=== PATIENT | male | born 1950 | race Two or more races ===

== ENCOUNTER 2020-02-21 12:45 | Inpatient (IN) | payer OTHER, SELFPAY ==
[~2020-02-21] VITALS: Ht 166.4 cm; Wt 92.0 kg
[2020-02-21] MEDS ORDERED: TERAZOSIN HCL1 MG PO (13:21)
[2020-02-21] MEDS ORDERED: CORTEF5 MG PO (13:21)
[2020-02-21] MEDS ORDERED: CAPSAICIN HOT1 EACH PO (13:22)
[2020-02-21] MEDS ORDERED: PANTOPRAZOLE SO20 M1 PO (13:22)
[2020-02-21 13:23] LABS: BASOPHIL % 0.5 % (0-2); RED CELL DISTRIBUTION WIDTH 13.1 % (11.5-14.5)
[2020-02-21] MEDS ORDERED: MONTELUKAST SOD (13:23)
[2020-02-21] MEDS ORDERED: TRIAMCINOLONE M1 POW (13:23)
[2020-02-21] MEDS ORDERED: MOMETASONE FURO60 ML TOP (13:23)
[2020-02-21] MEDS ORDERED: COZAAR25 M1 PO (13:23)
[2020-02-21] MEDS ORDERED: ATORVASTATIN CA10 M1 PO (13:23)
[2020-02-21] MEDS ORDERED: LEVALBUTER1.25 MG/01 IH (13:24)
[2020-02-21] MEDS ORDERED: AZOR 10-20 MG1 EACH PO (13:24)
[2020-02-21 13:29] LABS: CALCIUM 8.1 mg/dL (8.5-10.1); CHLORIDE SERUM 102 mmol/L (98-107); CREATININE SERUM 1.2 mg/dL (0.7-1.3); GFR1 > 60 mL/min; GLUCOSE SERUM 94 mg/dL (74-106); POTASSIUM SERUM 3.9 mmol/L (3.5-5.1); SODIUM SERUM 137 mmol/L (136-145)
[2020-02-21 13:30] LABS: PLATELET COUNT 122 x10^3mcL (130-400)
[2020-02-21 13:33] LABS: ALKALINE PHOSPHATASE 38 U/L (46-116); ALT/SGPT 36 U/L (16-63); AST/SGOT 42 U/L (15-37); BILIRUBIN TOTAL 0.6 mg/dL (0.20-1.00); LACTIC DEHYDROGENASE (LDH) 385 U/L (100-190); TOTAL PROTEIN, SERUM 6.9 g/dL (6.4-8.2)
[2020-02-21 13:34] LABS: ALBUMIN 3.1 g/dL (3.4-5.0)
[2020-02-21 13:36] LABS: C REACTIVE PROTEIN 13.5 mg/dL (<=0.9)
[2020-02-21 14:55] VITALS: BP 126/80
[2020-02-21 16:18] LABS: UA SPECIFIC GRAVITY 1.025 (1.005-1.035); microscopic required? YES; urine erythrocyte 3+ (NEGATIVE)
[2020-02-21 16:36] VITALS: BP 144/90
[2020-02-21 16:43] VITALS: Ht 166.4 cm; Wt 92.0 kg
[2020-02-21 20:57] VITALS: BP 156/86
[2020-02-22] VITALS (11 sets, daily range): BP systolic 77–130; BP diastolic 46–88
[2020-02-22 07:09] LABS: CALCIUM 8.8 mg/dL (8.5-10.1); CREATININE SERUM 1.3 mg/dL (0.7-1.3); POTASSIUM SERUM 3.8 mmol/L (3.5-5.1)
[2020-02-22 07:15] LABS: BASOPHIL % 0.1 % (0-2); PLATELET COUNT 143 x10^3mcL (130-400); RED CELL DISTRIBUTION WIDTH 13.8 % (11.5-14.5)
[2020-02-22 15:33] LABS: RED CELL DISTRIBUTION WIDTH 14.6 % (11.5-14.5)
[2020-02-22 17:37] LABS: BAND NEUTROPHIL 2 % (0-10); MONOCYTE 6 % (0-7); SEGMENTED NEUTROPHILS 83 % (37-75)
[2020-02-22 17:39] LABS: rbc morphology (normal/abnorm) NORMAL (NORMAL)
[2020-02-22 17:42] LABS: PLATELET MORPHOLOGY PLATELETS NORMAL
[2020-02-22 17:46] LABS: PLATELET COUNT 148 x10^3mcL (130-400)
[2020-02-22 18:06] LABS: CARBON DIOXIDE 19.9 mmol/L (21-32)
[2020-02-22 18:12] LABS: CREATININE SERUM 2.1 mg/dL (0.7-1.3)
[2020-02-22 18:14] LABS: CALCIUM 8.1 mg/dL (8.5-10.1)
[2020-02-23] VITALS (15 sets, daily range): BP systolic 81–122; BP diastolic 44–4410
[2020-02-23 05:36] LABS: PLATELET COUNT 145 x10^3mcL (130-400)
[2020-02-23 05:41] LABS: BASOPHIL % 0 % (0-2)
[2020-02-23 05:42] LABS: CALCIUM 7.8 mg/dL (8.5-10.1); CARBON DIOXIDE 22.1 mmol/L (21-32); CREATININE SERUM 3.5 mg/dL (0.7-1.3); POTASSIUM SERUM 3.2 mmol/L (3.5-5.1)
[2020-02-24] VITALS (20 sets, daily range): BP systolic 73–132; BP diastolic 43–69
[2020-02-24 05:19] LABS: BILIRUBIN TOTAL 0.5 mg/dL (0.20-1.00); CALCIUM 6.2 mg/dL (8.5-10.1); CARBON DIOXIDE 20.7 mmol/L (21-32); PHOSPHOROUS 4.5 mg/dL (2.5-4.9)
[2020-02-24 05:23] LABS: ALBUMIN 1.8 g/dL (3.4-5.0); TOTAL PROTEIN, SERUM 5.1 g/dL (6.4-8.2)
[2020-02-24 05:26] LABS: POTASSIUM SERUM 2.8 mmol/L (3.5-5.1)
[2020-02-24 05:27] LABS: CREATININE SERUM 5.6 mg/dL (0.7-1.3)
[2020-02-24 05:31] LABS: PLATELET COUNT 166 x10^3mcL (130-400)
[2020-02-24 05:34] LABS: RED CELL DISTRIBUTION WIDTH 15.2 % (11.5-14.5)
[2020-02-24 06:22] LABS: PLATELET COUNT 178 x10^3mcL (130-400)
[2020-02-24 06:27] LABS: RED CELL DISTRIBUTION WIDTH 14.9 % (11.5-14.5)
[2020-02-24 06:31] LABS: BILIRUBIN TOTAL 0.6 mg/dL (0.20-1.00); CALCIUM 7.1 mg/dL (8.5-10.1); CARBON DIOXIDE 21.9 mmol/L (21-32); POTASSIUM SERUM 3.5 mmol/L (3.5-5.1); TOTAL PROTEIN, SERUM 6.2 g/dL (6.4-8.2)
[2020-02-24 06:44] LABS: ALBUMIN 2.2 g/dL (3.4-5.0); CREATININE SERUM 6.3 mg/dL (0.7-1.3)
[2020-02-24 13:18] LABS: BAND NEUTROPHIL 7 % (0-10); MONOCYTE 10 % (0-7); SEGMENTED NEUTROPHILS 82 % (37-75)
[2020-02-24 13:19] LABS: BASOPHIL 0 % (0-2); rbc morphology (normal/abnorm) NORMAL (NORMAL)
[2020-02-24 13:45] LABS: ATYPICAL LYMPH 1 %; BAND NEUTROPHIL 10 % (0-10); BASOPHIL 0 % (0-2); MONOCYTE 58 % (0-7); SEGMENTED NEUTROPHILS 31 % (37-75)
[2020-02-24 13:46] LABS: PLATELET MORPHOLOGY PLATELETS DECREASED
[2020-02-24 13:47] LABS: rbc morphology (normal/abnorm) ABNORMAL (NORMAL)
[2020-02-25] VITALS (8 sets, daily range): BP systolic 94–118; BP diastolic 50–57
[2020-02-25 05:52] LABS: BASOPHIL % 0.5 % (0-2); PLATELET COUNT 130 x10^3mcL (130-400)
[2020-02-25 05:53] LABS: RED CELL DISTRIBUTION WIDTH 15.2 % (11.5-14.5)
[2020-02-25 05:57] LABS: CALCIUM 6.8 mg/dL (8.5-10.1); CARBON DIOXIDE 15.5 mmol/L (21-32)
[2020-02-25 06:09] LABS: C REACTIVE PROTEIN 57.8 mg/dL (<=0.9)
[2020-02-25 06:11] LABS: CREATININE SERUM 7.9 mg/dL (0.7-1.3); POTASSIUM SERUM 6.8 mmol/L (3.5-5.1)
== END 2020-02-25 15:46 | disposition expired | DRG 871 ==
LOC: ED 12:45 → DU 14:11 → IC 02-22 09:53
PROVIDERS: Emergency Medicine; Internal Medicine; ADMIT Internal Medicine
PROC: 5A1945Z Respiratory Ventilation, 24-96 Consecutive Hours (ICD-10-PCS; 2020-02-22)
PROC: 0BH17EZ Insertion of Endotracheal Airway into Trachea, Via Natural or Artificial Opening (ICD-10-PCS; 2020-02-22)
PROC: 04HY32Z Insertion of Monitoring Device into Lower Artery, Percutaneous Approach (ICD-10-PCS; principal; 2020-02-25)
PROC: 5A12012 Performance of Cardiac Output, Single, Manual (ICD-10-PCS; 2020-02-25)
DX: A41.89 Other specified sepsis (principal); N17.0 Acute kidney failure with tubular necrosis; U07.1 COVID-19; J12.89 Other viral pneumonia; J96.21 Acute and chronic respiratory failure with hypoxia; I42.9 Cardiomyopathy, unspecified; J44.9 Chronic obstructive pulmonary disease, unspecified; I25.10 Atherosclerotic heart disease of native coronary artery without angina pectoris; I11.0 Hypertensive heart disease with heart failure; I50.9 Heart failure, unspecified; J98.2 Interstitial emphysema
CPT/HCPCS: 31500; 36556; 36600; 82962; 83880; 85378; 87804; A4628; C9113; G0378; J0456; J0696; J1650; J2250; J2370; J2704; J3010; J3490; J7030; J7040; J7050; P9047; Q0092; U0003-CS